=== PATIENT | male | born 1975 | race African-American/Black ===

== ENCOUNTER 2017-01-13 12:26 | Emergency (ER) | payer OTHER ==
[~2017-01-13] VITALS: Ht 182.9 cm; Wt 97.5 kg
[2017-01-13 14:03] LABS: URINE BILIRUBIN NEGATIVE (Negative); URINE COLOR YELLOW; URINE GLUCOSE-RANDOM* NEGATIVE (Negative); URINE KETONES NEGATIVE (Negative); URINE PROTEIN (DIPSTICK) NEGATIVE (Negative); URINE SPECIFIC GRAVITY 1.025 (1.003-1.035)
[2017-01-13 14:04] LABS: URINE BLOOD TRACE (Negative); URINE NITRITE NEGATIVE (Negative)
[2017-01-13 15:17] VITALS: BP 143/85
== END 2017-01-13 15:19 | disposition home or self-care (01) ==
LOC: ER 12:26
PROVIDERS: Physician Assistant
DX: Z20.2 Contact with and (suspected) exposure to infections with a predominantly sexual mode of transmission (principal); E78.00 Pure hypercholesterolemia, unspecified

== ENCOUNTER 2019-02-07 02:14 | Emergency (ER) | payer OTHER ==
[~2019-02-07] VITALS: Ht 180.3 cm; Wt 91.6 kg
[2019-02-07 02:50] LABS: URINE BILIRUBIN NEGATIVE (Negative); URINE BLOOD 1+ (Negative); URINE CLARITY CLEAR; URINE COLOR YELLOW; URINE GLUCOSE-RANDOM* NEGATIVE (Negative); URINE KETONES NEGATIVE (Negative); URINE LEUKOCYTES-REFLEX NEGATIVE (Negative); URINE NITRITE-REFLEX NEGATIVE (Negative); URINE PROTEIN (DIPSTICK) NEGATIVE (Negative); URINE UROBILINOGEN 0.2 E.U./dl (0.2-1.0)
[2019-02-07 03:53] LABS: BACTERIA-REFLEX 1-9 Few /HPF (None Seen); CASTS None Seen /LPF (None Seen); CRYSTALS None Seen /LPF (None Seen); SQUAMOUS 0-3 Few /LPF (0-3); URINE RBC 3-10 Few /HPF (0-2); URINE WBC-REFLEX 0-5 Rare /HPF (0-5)
[2019-02-07 03:58] LABS: ABSOLUTE NEUTROPHILS 4.5 thou/uL (1.4-8.2); EOSINOPHILS 3.8 % (0.0-3.0); HEMATOCRIT 46.3 % (42.0-52.0); HEMOGLOBIN 15.6 gm/dL (14.0-18.0); LYMPHOCYTES 22.6 % (24.0-44.0); MCH 30.8 pg (26.0-34.0); MCHC 33.8 g/dL (28.0-37.0); MCV 91.1 fL (80.0-100.0); MONOCYTES 11.5 % (1.0-8.0); PLATELET COUNT 187 thou/uL (150-400); POLYS 61.1 % (36.0-66.0); RBC 5.08 mil/uL (4.50-6.00); RDW 15.4 % (10.5-14.5); WBC 7.4 thou/uL (4.0-11.0)
[2019-02-07 04:02] LABS: ANION GAP 7 mmol/L (7-16); BUN 16 mg/dL (7-18); CALCIUM 8.3 mg/dL (8.5-10.1); CHLORIDE 104 mmol/L (98-107); CO2 28 mmol/L (21-32); CREATININE 1.3 mg/dL (0.7-1.3); GLUCOSE 116 mg/dL (74-106); POTASSIUM 3.4 mmol/L (3.5-5.1); SODIUM 139 mmol/L (136-145)
[2019-02-07 04:08] LABS: ALBUMIN 3.5 g/dL (3.4-5.0); DIRECT BILIRUBIN < 0.1 mg/dL (<0.1-0.3); SGOT 26 U/L (15-37); SGPT 32 U/L (30-65); TOTAL BILIRUBIN 0.2 mg/dL (<0.1-1.0); TOTAL PROTEIN 6.7 g/dL (6.4-8.2)
[2019-02-07 04:45] VITALS: BP 144/92
== END 2019-02-07 04:45 | disposition home or self-care (01) ==
LOC: ER 02:14
PROVIDERS: Emergency Medicine
DX: R31.9 Hematuria, unspecified (principal); R55 Syncope and collapse; F17.210 Nicotine dependence, cigarettes, uncomplicated; E78.00 Pure hypercholesterolemia, unspecified